=== PATIENT | female | born 2005 ===

== ENCOUNTER 2024-06-17 03:01 | Outpatient (CLI) | payer MEDICAID, SELFPAY ==
--- NOTE | 2024-06-17 07:15 | DI.US_ITS ---
Exam(s) US PELVIS TRANSVAGINAL EXAM: US PELVIS TRANSVAGINAL CLINICAL HISTORY: heavy periods, pelvic pain,r10.2,n92.0. TECHNIQUE: Transabdominal and transvaginal pelvic ultrasound was performed using standard protocol. COMPARISON: No exams were available for comparison FINDINGS: UTERUS: Position: Anteverted. Size: 8.7 long by 4.2 AP by 5.6 transverse cm Endometrium: 1.6 cm. This is at the upper limits of normal. Myometrium: Unremarkable. Cervix: There is a nabothian cysts present. OVARIES: Right: 3.6 x 2.4 x 2.9 cm Cyst or mass: No suspicious cystic or solid masses. Left: 3.7 x 1.9 x 2.7 cm Cyst or mass: No suspicious cystic or solid masses. There is a 2 cm hemorrhagic cyst seen on the lef t ovary. There are several smaller peripherally located cysts on the left ovary. They are less than 5 mm in size. DOPPLER: Color: Symmetric and uniform flow to both ovaries. CUL-DE-SAC: Free fluid: There is a small amount of fluid seen adjacent to the right ovary which is likely physiol ogic. Other: None. IMPRESSION: 1. Normal-appearing uterus with endometrial stripe within normal limits. 2. 2 cm left ovarian hemorrhagic cyst. 3. Small peripherally located cysts seen in the left ovary. In the appropriate clinical setting, PCO S may be considered. DATA REPOSITORY:
== END 2024-06-17 03:21 ==
LOC: DI 03:01
PROVIDERS: Visit Provider Nurse Practitioner Women's Health
DX: R10.2 Pelvic and perineal pain (principal); N92.0 Excessive and frequent menstruation with regular cycle
CPT/HCPCS: 76830; 76856

== ENCOUNTER 2024-09-23 00:43 | Outpatient (CLI) | payer MEDICAID, SELFPAY ==
--- NOTE | 2024-09-23 06:15 | DI.US_ITS ---
Exam(s) US PELVIS TRANSVAGINAL EXAM: US PELVIS TRANSVAGINAL CLINICAL HISTORY: f/u 6.5 R ovarian cyst,n83.209 TECHNIQUE: Transabdominal and transvaginal imaging was performed using standard protocol. COMPARISON: US US PELVIS TRANSVAGINAL from 06/17/2024 FINDINGS: UTERUS: Anteverted. 9.0 x 3.3 by 6.4 cm. Endometrium: Thickened endometrium with ovoid fluid collection which may represent a station all sac. It has a somewhat collapsed appearance. There is a questionable pole without cardiac activit y and a question of a yolk sac which also does not appear normal. Myometrium: Unremarkable. Cervix: Unremarkable nabothian cyst. OVARIES: Right: Cyst or mass: None. Left: Cyst or mass: None. DOPPLER: Color: Symmetric and uniform flow to both ovaries. No hyperemia. CUL-DE-SAC: Free fluid: Small to moderate amount of fluid in the cul-de-sac. IMPRESSION: 1. Thickening of the endometrial stripe the gestational sac. There is apparent gestational sac with questionable pole and yolk sac. No cardiac activity. The findings are consistent with a nonvi able gestation versus retained products of conception. 2. Unremarkable bilateral ovaries. Findings discussed with Heidi Montenegro NP DATA REPOSITORY:
== END 2024-09-23 01:03 ==
PROVIDERS: Visit Provider Nurse Practitioner Women's Health
DX: N83.201 Unspecified ovarian cyst, right side (principal); Z97.5 Presence of (intrauterine) contraceptive device
CPT/HCPCS: 76830; 76856

== ENCOUNTER 2024-09-23 10:22 | Outpatient (CLI) | payer MEDICAID, SELFPAY ==
[2024-09-23 10:33] LABS: HCG Quant, Pregnancy 2 mIU/mL (1-3)
== END 2024-09-23 10:23 | disposition home or self-care (01) ==
LOC: LBO 10:22
PROVIDERS: Visit Provider Nurse Practitioner Women's Health
DX: Z32.01 Encounter for pregnancy test, result positive (principal)
CPT/HCPCS: 36415; 84702

== ENCOUNTER 2024-09-23 12:41 | Day surgery (SDC) | payer MEDICAID, SELFPAY ==
[2024-09-23] VITALS (19 sets, daily range): BP systolic 101–128; BP diastolic 57–85; PULSE 49–85; RESP 9–20; TEMP 36.3–36.8; O2SAT 98–100; BMI 23.1
[2024-09-23 13:45] LABS: HCT 42.1 % (36.0-46.0); HGB 14.2 g/dL (11.2-15.7); MCH 30.7 pg (27.0-33.0); MCHC 33.7 % (32.0-36.0); MCV 91 fL (80-95); MPV 9.6 fL (8.0-11.0); Platelet Count 272 10^3/uL (130-400); RBC 4.63 10^6/uL (3.93-5.22); RDW 12.3 % (11.7-14.6); RDW-SD 40.6 fL; WBC 7.59 10^3/uL (4.4-10.8)
[2024-09-23] MEDS: Lactated Ringers 1,000 ML 150 ML IV (13:51)
[2024-09-23] MEDS: Doxycycline Hyclate 100 MG CAP 200 MG PO (13:51)
--- NOTE | 2024-09-23 13:57 | ANES.PREOP_ITS ---
General Info Date of Service Date Performed: 09/23/24 Height: 5 ft 3.75 in Weight: 60.6 kg Body Mass Index (BMI): 23.1 Surgical Procedure: Operation Date: 09/23/24 13:55 Proposed Procedure Side Surgeon p Suction D&C Brittnee Hartmann, s Insertion of IUD- Mirena Brittnee Hartmann, Meds Allergies and Home Medications Allergies Allergy/AdvReac Type Severity Reaction Status Date / Time No Known Allergies Allergy Verified 09/23/24 13:38 Home Medication ?Medication ?Instructions ?Recorded omeprazole 20 mg capsule,delayed 20 mg PO DAILY 09/23/24 release Current Visit Medications: Current Medications Generic Name Dose Route Start Last Admin Trade Name Freq PRN Reason Stop Dose Admin Citric Acid/Sodium Citrate 20 ml 09/23/24 06:00 Sodium Citrate 30 Ml Cup PO 09/23/24 23:59 PREOP JOYA Doxycycline Hyclate 200 mg 09/23/24 13:00 09/23/24 13:51 Doxycycline Hyclate 100 Mg Cap PO 09/23/24 23:59 200 mg PREOP JOYA Administration Ringer's Solution 1,000 mls @ 150 mls/hr 09/23/24 06:00 09/23/24 13:51 IV 09/23/24 23:59 150 mls/hr INFUSION JOYA Administration IV Miscellaneous Supplies 1 each 09/23/24 06:00 Iv Access IV 09/23/24 23:59 DIRECTED JOYA Sodium Chloride 0 ml 09/23/24 06:00 Normal Saline Flush 10 Ml Syr IV 09/23/24 23:59 PRN PRN Sodium Chloride 0 ml 09/23/24 06:00 Normal Saline 10 Ml Vial IJ 09/23/24 23:59 DIRECTED PRN Sterile Water 0 ml 09/23/24 06:00 Water,Injection,Sterile 10 Ml Vial IJ 09/23/24 23:59 DIRECTED PRN PFSH Active Problems Active Problems: Problem Status Onset Code Menorrhagia with regular cycle Acute N92.0 Dysmenorrhea Acute N94.6 Medical History Medical History (Updated 09/23/24 @ 13:39 by Leslie Roland) Hx of ovarian cyst Suicide attempt Inflammatory bowel syndrome Depression with anxiety Eating disorder Surgical History Surgical History (Updated 09/23/24 @ 13:39 by Leslie Roland) Hx of wisdom tooth extraction Tobacco Smoking/Tobacco Use Status: Former Tobacco Use Alcohol Alcohol Intake: current Alcohol intake frequency: other Substance Use Substance use: Occasionally Substance use type: marijuana Details: alcohol: t-14, marijuana: not currrently Prental History History 2 1 Para Hx # Term Pregnancies Multiple births Hx # Pregnancies Ectopic pregnancies AB induced Hx Number of Living Children AB spontaneous Vital Signs and Lab Results Vital Signs Most Recent Vital Signs in EMR: Most Recent Vital Signs Temp Pulse Resp BP Pulse Ox 36.7 C 79 18 120/85 100 09/23/24 13:41 09/23/24 13:41 09/23/24 13:41 09/23/24 13:41 09/23/24 13:41 Lab Results 09/23/24 13:33 Blood Type / Crossmatch: 2 Antibody Screen Pending 09/23/24 Complete Blood Count: 2 White Blood Count 7.59 10^3/uL (4.4-10.8) 09/23/24 13:33 Red Blood Count 4.63 10^6/uL (3.93-5.22) 09/23/24 13:33 Hemoglobin 14.2 g/dL (11.2-15.7) 09/23/24 13:33 Hematocrit 42.1 % (36.0-46.0) 09/23/24 13:33 Platelet Count 272 10^3/uL (130-400) 09/23/24 13:33 Complete Metabolic Panel: 2 No Data to Display Liver Function Panel: 2 No Data to Display Coagulation Panel: 2 No Data to Display Cardiac Panel: 2 No Data to Display Arterial Blood Gas: 2 No Data to Display Venous Blood Gas: 2 No Data to Display Pancreas Panel: 2 No Data to Display Thyroid Panel: 2 No Data to Display Infectious Disease: 2 No Data to Display Blood Cultures: 2 No Data to Display Toxicology Panel: 2 No Data to Display Panel: 2 Beta HCG, Quantitative 2 mIU/mL (1-3) 09/23/24 10:05 Anesthesia Assessment and Plan Anesthesia History Personal History: No History of Anesthesia Complications Family History: No Family History of Anesthesia Complications Exercise Tolerance Exercise Tolerance: Metabolic Equivalents>4 Cardiac & Pulmonary Exam Cardiac Exam: Normal S1/S2 Heart Sounds Pulmonary Exam: Clear Bilateral Breath Sounds Implantable Cardiac Device Does patient have a Pacemaker or an ICD?: No Airway Exam Known Difficult Airway: No Mallampati Class: 3 Mouth Opening: Normal (> 3cm) Thyromental Distance: Greater than 3 cm Neck Range of Motion: Full ROM Neck Circumference: Normal Teeth Condition: Normal Dentition ASA Classification ASA Score: ASA 2 Emergency Case?: No NPO Status NPO Status: NPO Clears >2 hours, Solids >8 hours Status Status: Negative HCG Anesthesia Plan Resuscitation Status: Full Code Anesthesia Technique: General Anesthesia Airway Planned: Natural Airway Monitors Used: Standard Monitors Preoperative Comments:: 19 yo female for D/C. In June received medication induced at~ 7wks. With a recent OB appointment was found to still have retained products. Sig PMHx: GERD (omeprazole), depression/anxiety. former smoker, occ cannabis/EtOH.
[2024-09-23] MEDS: Sodium Citrate 30 ML CUP 20 ML PO (13:58)
--- NOTE | 2024-09-23 15:09 | OPPNE_ITS ---
Date of service: 09/23/24 Time of Service: 15:09 Procedure Note Procedure: Suction dilation and curettage with placement of Mirena Intrauterine Device Surgeon/Proceduralist/Physician: Brittnee Hartmann Procedure Diagnosis: Incomplete miscarriage Procedure Indications: 19-year-old -0-2-0 presents for scheduled suction dilation curettage with placement of Mirena IUD. She was seen in the office for follow-up on adnexal cyst, and, while the cyst was noted to have resolved, she was noted to incidentally have an irregular appearing gestational sac. Patient reported a first day last menstrual period of somewhere between August 21 and with subsequent heavy bleeding on the days of September 16 and September 17. She was also noted to be bleeding in the office today. She does not desire , and had anticipated getting an IUD today. Given the concerning findings and her desire for an IUD, we discussed options and ultimately she was consented for the above procedure. Procedure Description: Patient was taken to the OR with IV fluids running. 200 mg of doxycycline had been administered orally approximately an hour before the procedure for surgical prophylaxis. General anesthesia was established and found to be adequate. The patient was positioned into the dorsolithotomy position using yellowfin stirrups. The vagina was prepped, and a straight cath was used to empty the bladder. A timeout was performed. A side loading Graves speculum was placed inside the vagina and the cervix was easily visualized. The anterior lip of the cervix was grasped with a single-tooth tenaculum, and the cervix was progressively dilated up to a 16 Arabic Elmer dilator. The uterus was sounded to approximately 8.5 cm. A curved 7 mm suction curette was placed with careful attention to avoid perforation. The suction tubing was then connected, and the curette was rotated carefully in a clockwise direction. A notable amount of product was removed from the uterus. The same procedure was performed until no more material was appreciated and ultrasound performed by a fellow physician appreciated a smooth endometrium (a total of 4 passes). The uterus was sounded once more to confirm an 8.5 cm depth. A Mirena IUD was removed from its packaging, and the cuff was arranged at 8 cm. The Mirena IUD was then retracted into its delivering device, the device was introduced into the uterine cavity, and the IUD was deployed using industrial standards. Again, ultrasound appreciated appropriate placement of the IUD. The strings were cut to 3 cm beyond the cervical os. The single-tooth tenaculum was removed, and good hemostasis was appreciated. All instruments were removed and the patient was noted to tolerate the procedure well. She was taken to PACU in good condition.
--- NOTE | 2024-09-23 15:27 | W.ANESPOSTOP ---
Postoperative Evaluation Date, Time and Location Date Performed: 09/23/24 Time Performed: 15:28 Patient Location: PACU Vital Signs Most Recent Imported Vital Signs: Most Recent Vital Signs Temp Pulse Resp BP Pulse Ox 36.8 C 79 18 120/85 100 09/23/24 15:12 09/23/24 13:41 09/23/24 13:41 09/23/24 13:41 09/23/24 13:41 Pain Score Most Recent Pain Score: Most Recent Pain Score Pain Level 1 09/23/24 13:41 Assessment Mental Status: Awake (Alert & Oriented to Patient Baseline) Airway and Respiratory Function: Patent airway with normal (patient baseline) respiratory exam Cardiovascular Function: Hemodynamically Stable Hydration Status: Adequately Hydrated Nausea & Vomiting: No Nausea or Vomiting Pain: Pain is tolerable per patient Peripheral Nerve Block: Patient did not receive a nerve block Postoperative Comments:: Discussed that we went to a breathing tube due to her stating that she had bubbling and was nauseated. Discussed that her throat will be sore due to suctioning at the end of the case due to her vomiting.
== END 2024-09-23 16:55 | disposition home or self-care (01) ==
PROVIDERS: Visit Provider Obstetrics & Gynecology
PROC: 0U2DXHZ Change Contraceptive Device in Uterus and Cervix, External Approach (ICD-10-PCS; CPT 59841; principal; 2024-09-23 13:45)
PROC: 0U2DXHZ Change Contraceptive Device in Uterus and Cervix, External Approach (ICD-10-PCS; CPT 59812; 2024-09-23 13:45)
DX: O03.4 Incomplete spontaneous abortion without complication (principal)
CPT/HCPCS: 59812; 58300; 85027; 86850; 86900; 86901; 88305; J0131; J1100; J1805; J1885; J2003; J2405; J2704

== ENCOUNTER 2024-09-23 19:33 | Inpatient (IN) | payer MEDICAID, SELFPAY ==
[2024-09-23 19:39] VITALS: BP 140/79; PULSE 76; RESP 20; TEMP 36.9; O2SAT 100
--- NOTE | 2024-09-23 19:45 | DI.CT_ITS ---
Exam(s) CT ABDOMEN PELVIS W EXAM: CT ABDOMEN PELVIS W CLINICAL HISTORY: D C today, abdominal pain. TECHNIQUE: Imaging Protocol: Axial computed tomography images with coronal and sagittal reformatted images were created and reviewed CONTRAST MATERIAL: Intravenous: Omnipaque-350 75cc Oral: None COMPARISON: No exams were available for comparison FINDINGS: VISUALIZED LUNG BASES: No nodules nor pleural effusions evident. ABDOMEN: There is some are mild free fluid in the pelvis as well as in the right paracolic gutter subjacent to the right hepatic lobe. LIVER: There are no focal hepatic lesions evident. No dilated intrahepatic ducts. GALLBLADDER/BILIARY: No obvious gallbladder pathology. CBD is not dilated. PANCREAS: No evidence of pancreatic mass nor dilatation of the pancreatic duct. SPLEEN: Spleen is not enlarged. No obvious intrasplenic lesions. Splenic and portal veins are paten t. ADRENALS: There are no significant adrenal masses. KIDNEYS:Bilateral extrarenal pelves. No true hydronephrosis nor hydroureter. No cysts nor solid marisel al masses. No calculi. No hydronephrosis.. ABDOMINAL AORTA: Abdominal aorta is not enlarged. LYMPH NODES:There is no retroperitoneal nor paraaortic adenopathy. ABDOMINAL WALL: No evidence of significant anterior abdominal wall nor inguinal hernia. GI: There is no evidence of bowel obstruction, free air, nor abscess. PELVIS: GI: Retrocecal appendix with no evidence of acute appendicitis..No evidence of sigmoid diverticulitis . LYMPH NODES: There is no intrapelvic nor inguinal adenopathy. REPRODUCTIVE: There is an IUD in the endometrial canal. The endometrium is significantly thickened t o almost 3 cm. There are no uterine fibroids. There are cysts in both ovaries. There is a 1.8 x 2. 0 cm cyst in the right ovary which is probably follicular. Left ovary measures 4 x 2.5 cm and contai ns a peripherally enhancing corpus luteal cyst measuring 2.1 x 1.2 cm. There are no obvious extra ov jcarlos adnexal masses. Small amount of fluid is noted in the adnexal regions and pelvis. URINARY BLADDER: No calculi nor obvious masses evident OSSEOUS: No fractures and no significant osseous lesions. No fractures. Sacroiliac joints appear unremarkable. IMPRESSION: 1. No evidence of acute appendicitis. 2. There is an IUD in the endometrial canal. The endometrium is significantly thickened, measuring 3 cm thickness. It appears to contain a homogeneous material, probably blood. There does not appear to be an obvious discontinuity of the wall of the uterus. 3. There are cysts in both ovaries as described above. There is also peripherally enhancing corpus luteal cyst in left ovary measuring 2.1 x 1.2 cm. There is small amount of fluid in the adnexal sherlyn ons and cul-de-sac and subjacent to the right hepatic lobe. Small follicular cysts noted in the righ t ovary. 4. No evidence of bowel obstruction, free air, nor formed abscess. Report discussed by myself with ER provider 09/23/2024 at 9: 10 p.m. RADIATION DOSE DELIVERED: 340.89mGy.cm Total DLP DATA REPOSITORY: All CT scans at this facility are submitted to the National Radiology Data Registry (NRDR) Dose Index Registry (DIR) with the [employer] (A[employer]). RADIATION OPTIMIZATION: All CT scans at this facility use at least one of these dose optimization te chniques: automated exposure control; mA and/or kV adjustment per patient size (includes targeted exa ms where dose is matched to clinical indication); or iterative reconstruction.
--- NOTE | 2024-09-23 19:58 | W.ED.GENAD ---
Discharge Plan Disposition Patient Disposition: Admit to [facility] Condition: Stable Discharge Details Clinical Impression: Postoperative abdominal pain Primary Care Provider: Brittnee Elder ED Provider: Bianca Billy Home Meds and New Rx's Prescriptions: No Action omeprazole 20 mg capsule,delayed release(DR/EC) 20 mg PO DAILY ondansetron HCl 4 mg tablet 4 mg PO Q8H Patient Comments: TAKE 1 TABLET BY MOUTH EVERY 8 HOURS NEEDED FOR NAUSEA HPI General Mode of arrival: ambulatory. Date/Time Provider Initiated Documentation: 09/23/24 19:33. Limitations to Documentation: no limitations. Information obtained by: patient, RN notes reviewed and old records reviewed. HPI Narrative: 19-year-old female presents to the ER with a chief complaint of abdominal cramping and vaginal bleeding after having a D&C procedure today and Mirena placement. Patient was found to have retained products of conception from a elective on August 28. D&C was done and Mirena was placed. Patient reports that she went home and cramping has increased and intensified along with continued vaginal bleeding. She also endorses some nausea which is somewhat decreased since arrival. Denies any fever chills or any other associated symptoms. Last took Tylenol and ibuprofen around 3 PM. Related Data Home Medications ?Medication ?Instructions ?Recorded ?Confirmed omeprazole 20 mg capsule,delayed 20 mg PO DAILY 09/23/24 09/23/24 release ondansetron HCl 4 mg tablet 4 mg PO Q8H 09/23/24 09/23/24 Allergies Allergy/AdvReac Type Severity Reaction Status Date / Time No Known Allergies Allergy Verified 09/23/24 19:42 General Stated Complaint: J2EE JAVA DEVELOPER HUMERA: 3 Review of Systems All systems reviewed & are unremarkable except as noted in HPI and below Gastrointestinal Gastrointestinal: Reports abdominal pain, Reports cramping and Reports nausea Genitourinary Genitourinary: Reports abnormal vaginal bleeding Exam Narrative Exam Narrative: Constitutional: Alert and oriented x3. Appears stated age. Normal body habitus. Head: Normocephalic, no trauma. Eyes: Pupils PERRL, Red reflex noted, EOM's intact. Eyelids symmetrical without lesions, discharge, or swelling. ENT: Bilateral TM's WNL, External ear normal to inspection, no mastoid TTP, swelling, or erythema, Nasal turbinates WNL, no nasal discharge. Normal dentition, Posterior pharynx WNL, no exudate. Chest: RRR, Normal S1, S2, distal pulses intact. Resp: Lungs clear to auscultation bilaterally, no wheezes, rales, or rhonchi. Abdomen: Soft, non-distended, Normoactive bowel sounds all 4 quads. Right lower quadrant tenderness with palpation. No bloating no masses. No distention. Musculoskeletal: Normal gait, Moves all 4 extremities without difficulty. Skin: No suspicious rashes or lesions. Capillary refill less than 2 sec. Neurologic: Cranial nerves II-XII intact. Alert and oriented x 3. Motor: No deficits noted. Sensory: Intact bilaterally all 4 extremities. Hematologic/Lymphatic: No ecchymosis, no lymphadenopathy. Course Vital Signs Vital signs: Vital Signs Temperature 36.9 C 09/23/24 19:39 Pulse 76 09/23/24 19:39 Respiratory Rate 20 09/23/24 19:39 Blood Pressure 140/79 09/23/24 19:39 Pulse Oximetry 100 09/23/24 19:39 Temperature 36.9 C 09/23/24 19:39 Pulse 76 09/23/24 19:39 Respiratory Rate 20 09/23/24 19:39 Blood Pressure 140/79 09/23/24 19:39 Pulse Oximetry 100 09/23/24 19:39 Pain Level 8 09/23/24 19:54 Medical Decision Making 19-year-old female presents to the ER with a chief complaint of abdominal cramping and vaginal bleeding after having a D&C procedure today and Mirena placement. Patient was found to have retained products of conception from a elective on August 28. D&C was done and Mirena was placed. Patient reports that she went home and cramping has increased and intensified along with continued vaginal bleeding. She also endorses some nausea which is somewhat decreased since arrival. Denies any fever chills or any other associated symptoms. Last took Tylenol and ibuprofen around 3 PM. CBC CMP IV normal saline 500 cc 15 mg of Toradol Zofran given. Will do CT abdomen pelvis. principal programmer Brittnee Forte, here at for patient evaluation, she suspects possible expelling of IUD. J2EE JAVA DEVELOPER was able to do bimanual exam was able to feel the strings and reports that the bleeding that patient currently has is appropriate. She agrees with the labs and CT imaging. 2117: J2EE JAVA DEVELOPER paged, call received from [facility] regarding CT result, there is a punctate hyperdense focus in the right superior aspect of the endometrium differential considerations include extravasation. Thickened endometrium, ovarian cysts, some free fluid by the right hepatic lobe. Spoke again with J2EE JAVA DEVELOPER she will admit her overnight for observation, discussed the CT results. Patient has remained hemodynamically stable throughout the remainder of her stay here. This text was generated using [employer]ubank[employer] system, please disregard any oddities of phrase or misspellings. Medical Records Medical records reviewed: Yes I reviewed the patient's medical records. Imaging Data Radiologic Study: Imaging: CT Scan Radiologist's impression: gs: Lung bases are clear. Liver: The liver has a normal appearance. Gallbladder and biliary ducts: The gallbladder is unremarkable. No biliary ductal dilatation. Pancreas: The pancreas demonstrates normal size. No pancreatic ductal dilatation. Spleen: The spleen demonstrates normal size. Adrenal glands: The adrenal glands have a normal appearance. Kidneys and ureters: The kidneys are normal in size. There are prominent bilateral extrarenal pelves noted. No nephrolithiasis or hydronephrosis. No hydroureter or ureterolithiasis. Stomach and bowel: The bowel demonstrates overall normal caliber and wall thickness. Appendix: The appendix is thin walled and gas filled. Intraperitoneal space: Unremarkable. No free air. No significant fluid collection. Vasculature: Unremarkable. No abdominal aortic aneurysm. Lymph nodes: Unremarkable. No enlarged lymph nodes. Urinary bladder: The bladder is thin walled and fluid filled. Reproductive: An IUD is present within the uterine fundus where expected. The endometrium is thickened measuring up to 2.8 cm in diameter. A hyperdense focus is present within the superior right aspect of the endometrium which appears isodense to the adjacent external iliac artery. Differential considerations include active extravasation. A crenulated appearing follicular cyst is present within the left ovary. A 1.6 cm hypodense cyst is present within the right ovary. Bones/joints: Unremarkable. No acute fracture. Soft tissues: Unremarkable. IMPRESSION: 1. Markedly thickened endometrium with punctate hyperdense focus as described above. This finding may be associated with a small nidus of active extravasation given the history of recent D&C. 2. No other acute intra-abdominal findings. Normal appendix. 3. Crenulated appearing left ovarian cyst suggesting Lab Data Lab results reviewed: Yes I reviewed the patient's lab results. Labs: Laboratory Tests Range/Units 09/23/24 20:09 WBC (4.4-10.8) 10^3/uL 8.27 RBC (3.93-5.22) 10^6/uL 4.48 Hgb (11.2-15.7) g/dL 13.7 Hct (36.0-46.0) % 40.2 MCV (80-95) fL 90 MCH (27.0-33.0) pg 30.6 MCHC (32.0-36.0) % 34.1 RDW (11.7-14.6) % 12.3 Plt Count (130-400) 10^3/uL 281 MPV (8.0-11.0) fL 9.7 Immature Gran % % 0.2 Neutrophils % % 87.9 Lymphocytes % % 10.5 Monocytes % % 1.1 Eosinophils % % 0.2 Basophils % % 0.1 Nucleated RBC % (0.0-0.3) % 0.0 Absolute Neutrophils (1.2-6.7) 10^3/uL 7.26 H Absolute Lymphocytes (1.2-3.4) 10^3/uL 0.87 L Absolute Monocytes (0.1-0.8) 10^3/uL 0.09 L Absolute Eosinophils (0.0-0.7) 10^3/uL 0.02 Absolute Basophils (0.0-0.2) 10^3/uL 0.01 Sodium (136-145) mmol/L 138 Potassium (3.5-5.1) mmol/L 3.9 Chloride (98-107) mmol/L 105 Carbon Dioxide (21.0-32.0) mmol/L 24.0 Anion Gap (3-11) mmol/L 9.0 BUN (7-18) mg/dL 13 Creatinine (0.55-1.02) mg/dL 0.7 Est GFR (CKD-EPI 2020) (mL/min/1.73m2) 126.90 Glucose (74-106) mg/dL 169 H Calcium (8.5-10.1) mg/dL 9.5 Total Bilirubin (0.2-1.0) mg/dL 0.6 AST (15-37) U/L 19 ALT (14-59) U/L 16 Alkaline Phosphatase (46-116) U/L 62 Total Protein (6.4-8.2) g/dL 8.0 Albumin (3.4-5.0) g/dL 4.4 Quality:SDOH Health Related Social Needs: No Data to Display PFSH All Active Problems (Updated 09/23/24 @ 21:37 by Bianca Billy NP) Postoperative abdominal pain (Acute) Abdominal pain (Acute) Menorrhagia with regular cycle (Acute) Dysmenorrhea (Acute) Medical History (Updated 09/23/24 @ 21:37 by Bianca Billy NP) Hx of ovarian cyst Suicide attempt Inflammatory bowel syndrome Depression with anxiety Eating disorder Surgical History (Updated 09/23/24 @ 13:39 by Leslie Roland) Hx of wisdom tooth extraction Family History (Updated 06/03/24 @ 11:01 by Lidia Jones) Other Hypertension Stroke Social History (Updated 06/03/24 @ 10:59 by Lidia Jones) Smoking/Tobacco Use Status: Former Tobacco Use Tobacco: How many years used: 1 Quit status: has quit before Smoking risk assessment performed?: Yes Alcohol Intake: current Alcohol Intake frequency: other Drug use: Occasionally Substance use type: marijuana Details: alcohol: t-14, marijuana: not currrently Household members: significant other Housing: house 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 Sexually active: Yes Do you think of yourself as: straight/heterosexual Current gender identity: female What is your relationship status?: living with partner Panel score (0-1 are the most socially isolated patients): 1 What type of physical activity do you participate in: regular exercise Duration: 45-60 minutes/day Frequency: 5-6 times per week Seatbelt use: always Helmet use: Yes Do you feel safe at home: Yes Do you feel safe in your relationship?: Yes Additional Social history: UT[employer] Female Reproductive History Menstrual Duration of menses: 6-7 days control method: none History History 1 Para Hx # Term Pregnancies Multiple births Hx # Pregnancies Ectopic pregnancies AB induced Hx Number of Living Children AB spontaneous
[2024-09-23 20:13] LABS: Abs Immature Grans 0.02 10^3/uL (0.0-0.06); Absolute Basophil Count 0.01 10^3/uL (0.0-0.2); Absolute Eosinophil Count 0.02 10^3/uL (0.0-0.7); Absolute Lymphocyte Count 0.87 10^3/uL (1.2-3.4); Absolute Monocyte Count 0.09 10^3/uL (0.1-0.8); Absolute Neutrophil Count 7.26 10^3/uL (1.2-6.7); Basophils % 0.1 %; Eosinophils % 0.2 %; HCT 40.2 % (36.0-46.0); HGB 13.7 g/dL (11.2-15.7); Immature Grans % 0.2 %; Lymphocytes % 10.5 %; MCH 30.6 pg (27.0-33.0); MCHC 34.1 % (32.0-36.0); MCV 90 fL (80-95); MPV 9.7 fL (8.0-11.0); Monocytes % 1.1 %; Neutrophils % 87.9 %; Platelet Count 281 10^3/uL (130-400); RBC 4.48 10^6/uL (3.93-5.22); RDW 12.3 % (11.7-14.6); RDW-SD 40.3 fL; WBC 8.27 10^3/uL (4.4-10.8)
[2024-09-23] MEDS: Ketorolac 15 MG/ML VIAL IVP (20:17)
[2024-09-23] MEDS: Ondansetron 4 MG/2 ML VIAL IVP (20:17)
[2024-09-23] MEDS: Normal Saline 500 ML IV (20:18)
[2024-09-23 20:37] LABS: ALT 16 U/L (14-59); AST 19 U/L (15-37); Albumin 4.4 g/dL (3.4-5.0); Alkaline Phosphatase 62 U/L (46-116); BUN 13 mg/dL (7-18); Bilirubin, Total 0.6 mg/dL (0.2-1.0); CREATININE 0.7 mg/dL (0.55-1.02); Calcium 9.5 mg/dL (8.5-10.1); Chloride 105 mmol/L (98-107); Glucose 169 mg/dL (74-106); Potassium 3.9 mmol/L (3.5-5.1); Sodium 138 mmol/L (136-145)
[2024-09-23] MEDS: Omnipaque 350 MG/ML 100 ML BTL 75 ML IJ (20:37)
[2024-09-23] MEDS: Normal Saline - Diluent 50 ML VIAL IJ (20:38)
--- NOTE | 2024-09-23 20:55 | HPE_ITS ---
Date of service: 09/23/24 Time of Service: 20:00 Assessment and Plan Assessment and plan (1) Abdominal pain: Status: Acute Assessment and plan: The procedure performed was uncomplicated and the results were reassured with concomitant ultrasound imaging at the time of the procedure. The physical exam of the patient is consistent with the postoperative state. Patient endorses reduction of the pain with distraction of the emergency department. She denies nausea or any other associated symptoms. Her vitals are stable, her labs are stable, and her bleeding is appropriate. Strings are appreciated at the cervix, and I am unable to palpate the body of the IUD itself. I suspect her pain may be related to postoperative cramping, but, based on the patient's reported level of pain prior to presenting to the emergency department and the unilateral nature of the pain, I am in support of the decision to obtain a CT scan. History of Present Illness Narrative: I received a phone call from the patient this evening describing notable pain in the pelvis most prominently on the right side. Patient was instructed to proceed immediately to the emergency department. I assessed the patient at bedside. Review of Systems All systems reviewed & are unremarkable except as noted in HPI and below PFSH All Active Problems (Updated 09/23/24 @ 21:16 by Brittnee Hartmann DO) Abdominal pain (Acute) Menorrhagia with regular cycle (Acute) Dysmenorrhea (Acute) Medical History (Updated 09/23/24 @ 21:16 by Brittnee Hartmann DO) Hx of ovarian cyst Suicide attempt Inflammatory bowel syndrome Depression with anxiety Eating disorder Surgical History (Updated 09/23/24 @ 13:39 by Leslie Roland) Hx of wisdom tooth extraction Family History (Updated 06/03/24 @ 11:01 by Lidia Joens) Other Hypertension Stroke Social History (Updated 06/03/24 @ 10:59 by Lidia Jones) Smoking/Tobacco Use Status: Former Tobacco Use Tobacco: How many years used: 1 Quit status: has quit before Smoking risk assessment performed?: Yes Alcohol Intake: current Alcohol Intake frequency: other Drug use: Occasionally Substance use type: marijuana Details: alcohol: t-14, marijuana: not currrently Household members: significant other Housing: house 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 Sexually active: Yes Do you think of yourself as: straight/heterosexual Current gender identity: female What is your relationship status?: living with partner Panel score (0-1 are the most socially isolated patients): 1 What type of physical activity do you participate in: regular exercise Duration: 45-60 minutes/day Frequency: 5-6 times per week Seatbelt use: always Helmet use: Yes Do you feel safe at home: Yes Do you feel safe in your relationship?: Yes Additional Social history: UT[employer] Female Reproductive History Menstrual Duration of menses: 6-7 days control method: none History History 2 1 Para Hx # Term Pregnancies Multiple births Hx # Pregnancies Ectopic pregnancies AB induced Hx Number of Living Children AB spontaneous Meds Allergies and Home Medications Allergies Allergy/AdvReac Type Severity Reaction Status Date / Time No Known Allergies Allergy Verified 09/23/24 19:42 Home Medications ?Medication ?Instructions ?Recorded ?Confirmed ?Type omeprazole 20 mg capsule,delayed 20 mg PO DAILY 09/23/24 09/23/24 History release ondansetron HCl 4 mg tablet 4 mg PO Q8H 09/23/24 09/23/24 History Exam Narrative Exam Narrative: General: Well-nourished female; somewhat tearful but pleasant. Skin tone consistent with prior appearance. And HEENT: Normocephalic Pulm: Nonlabored breathing Abdomen: Soft, nondistended, nontender. Patient tolerates deep palpation of the lower abdomen well. Psych: Appropriate and responsive : Scant blood on pad appropriate for postop. Bimanual exam appreciates a closed cervix with strings protruding; some guarding with touching the cervix noted. Scant blood on glove. Results Labs 09/23/24 20:09 09/23/24 20:09 Labs: Laboratory Results - last 24 hr 09/23/24 20:09 WBC 8.27 RBC 4.48 Hgb 13.7 Hct 40.2 MCV 90 MCH 30.6 MCHC 34.1 RDW 12.3 Plt Count 281 MPV 9.7 Immature Gran % 0.2 Neutrophils % 87.9 Lymphocytes % 10.5 Monocytes % 1.1 Eosinophils % 0.2 Basophils % 0.1 Nucleated RBC % 0.0 Absolute Neutrophils 7.26 H Absolute Lymphocytes 0.87 L Absolute Monocytes 0.09 L Absolute Eosinophils 0.02 Absolute Basophils 0.01 Sodium 138 Potassium 3.9 Chloride 105 Carbon Dioxide 24.0 Anion Gap 9.0 BUN 13 Creatinine 0.7 Est GFR (CKD-EPI 2020) 126.90 Glucose 169 H Calcium 9.5 Total Bilirubin 0.6 AST 19 ALT 16 Alkaline Phosphatase 62 Total Protein 8.0 Albumin 4.4 Last Vital Signs Temp 98.4 F 09/23/24 19:39 Pulse 76 09/23/24 19:39 Resp 20 09/23/24 19:39 BP 140/79 09/23/24 19:39 Pulse Ox 100 09/23/24 19:39 Time Spent Time spent with Patient: 40-54 minutes Time was spent: preparing to see the patient(eg.review tests), obtaining and/or reviewing separately otained hiistory, referring, communicating with other health animal care giver, indepentently interpreting results and counseling the patient
--- NOTE | 2024-09-23 21:11 | DI.VRAD_ITS ---
PROCEDURE INFORMATION: Exam: CT Abdomen And Pelvis With Contrast Exam date and time: 09/23/2024 8:32 PM Age: 19 years old Clinical indication: Abdominal pain; Generalized; Prior surgery; Surgery date: Post-operative (0-2 days); Surgery type: D\T\c today - bleeding and pain TECHNIQUE: Imaging protocol: Computed tomography of the abdomen and pelvis with contrast. Contrast material: OMNIPAQUE 350; Contrast volume: 75 ml; Contrast route: INTRAVENOUS (IV); COMPARISON: US PELVIS TRANSVAGINAL 09/23/2024 8:19 AM FINDINGS: Lungs: Lung bases are clear. Liver: The liver has a normal appearance. Gallbladder and biliary ducts: The gallbladder is unremarkable. No biliary ductal dilatation. Pancreas: The pancreas demonstrates normal size. No pancreatic ductal dilatation. Spleen: The spleen demonstrates normal size. Adrenal glands: The adrenal glands have a normal appearance. Kidneys and ureters: The kidneys are normal in size. There are prominent bilateral extrarenal pelves noted. No nephrolithiasis or hydronephrosis. No hydroureter or ureterolithiasis. Stomach and bowel: The bowel demonstrates overall normal caliber and wall thickness. Appendix: The appendix is thin walled and gas filled. Intraperitoneal space: Unremarkable. No free air. No significant fluid collection. Vasculature: Unremarkable. No abdominal aortic aneurysm. Lymph nodes: Unremarkable. No enlarged lymph nodes. Urinary bladder: The bladder is thin walled and fluid filled. Reproductive: An IUD is present within the uterine fundus where expected. The endometrium is thickened measuring up to 2.8 cm in diameter. A hyperdense focus is present within the superior right aspect of the endometrium which appears isodense to the adjacent external iliac artery. Differential considerations include active extravasation. A crenulated appearing follicular cyst is present within the left ovary. A 1.6 cm hypodense cyst is present within the right ovary. Bones/joints: Unremarkable. No acute fracture. Soft tissues: Unremarkable. IMPRESSION: 1. Markedly thickened endometrium with punctate hyperdense focus as described above. This finding may be associated with a small nidus of active extravasation given the history of recent D\T\C. 2. No other acute intra-abdominal findings. Normal appendix. 3. Crenulated appearing left ovarian cyst suggesting recent follicular cyst rupture. Probable right corpus luteal cyst incompletely characterized by CT. THIS REPORT CONTAINS FINDINGS THAT MAY BE CRITICAL TO PATIENT CARE. The findings were verbally communicated via telephone conference with HELEN GONZALEZ at 9:11 PM EST on 09/23/2024. The findings were acknowledged and understood. Dictated and Authenticated by: Pooja Jane MD. Orderin Mariajose Valenzuela MD
[2024-09-23 21:16] VITALS: BP 129/87; PULSE 66; RESP 20; O2SAT 99
[2024-09-24] MEDS: Acetaminophen 500 MG TAB PO (00:28)
[2024-09-24 00:39] VITALS: BP 120/79; PULSE 72; RESP 16; TEMP 37.1
[2024-09-24 08:32] VITALS: BP 110/64; PULSE 54; RESP 16; TEMP 37.3; O2SAT 99
--- NOTE | 2024-09-24 23:58 | DSE_ITS ---
Date of service: 09/24/24 Time of Service: 09:00 DS: Diagnosis Discharge Diagnosis (1) Abdominal pain: Status: Acute Discharge Plan Disposition Patient Disposition: Home Condition: Stable Condition: Stable Discharge Details Reason For Visit: Post-operative pain Admit Date/Time: 09/23/24 22:32 Admit Provider: Brittnee Hartmann Attending Provider: Brittnee Hartmann Primary Care Provider: Brittnee Elder Hospital Course Hospital Course: 19-year-old -0-2-0 presented to the clinic on 09/23/2024 for follow-up on previously known adnexal cyst and placement of IUD. Of note, patient had undergone pharmacological, elective termination of in June 2024, which was confirmed as resolved at a [facility] by ultrasound. Patient underwent a subsequent ultrasound patient underwent a subsequent ultrasound today, regarding a recent adnexal cyst, and was incidentally noted to have an irregularly appearing gestational sac with questionable pole without cardiac activity. Patient reported a first day last menstrual period of sometime between August 21 and August 28; she did not desire this if it was viable. She described a heavy episode of bleeding on September 16 as well as September 17, and reported bleeding throughout the last week including today. Based on the ultrasound findings and symptoms concerning for incomplete miscarriage, patient was counseled on options including but not limited to everything from expectant management to suction dilation and curettage with placement of a Mirena IUD to be performed same day. After extensive counseling and answering of patient's questions, patient ultimately verbalized strong desire for proceeding with suction dilation curettage with placement of Mirena intrauterine device on the same day. This procedure was performed under ultrasound guidance on September 23, 2024 without issue, and patient was discharged to home same day. She called later in the evening expressing concerns over extreme pelvic pain, most notably over the right side. She was instructed to proceed to the emergency department immediately for evaluation. Upon arrival to the emergency department, I personally evaluated the patient, and found her to be overall appropriate in appearance for post suction dilation curettage. Her bimanual exam found no evidence of IUD expulsion nor excessive bleeding. Lab work was reassuring for hemodynamic stability as were vital signs. CT imaging was largely reassuring as well and was consistent with reassuring IUD placement. However, reviewed by 1 radiologist suggested the possibility of bleeding from the right side of the endometrium. Patient was admitted overnight for observation and pain management; over the course of the evening, she was noted to sleep without issue and required no further pain medications. The following morning, the patient was evaluated at the bedside, and found to be doing very well. She reported notable improvement in her pain overnight. Her bleeding was scant, and she was tolerating a regular diet without issue. She was able to urinate and defecate without issue. She denied any notable concerns. She was discharged to home with instructions to take off of work for , Saturday, Saturday, and Saturday. She was advised to make an appointment with the clinic for early the following week, and she was further advised to have a low threshold for representing for emergent medical evaluation if any further concerns arise. Both her and her boyfriend were advised to avoid sexual intercourse for at least 2 weeks, and/or until medically cleared. Home Meds and New Rx's Prescriptions: No Action omeprazole 20 mg capsule,delayed release(DR/EC) 20 mg PO DAILY ondansetron HCl 4 mg tablet 4 mg PO Q8H Patient Comments: TAKE 1 TABLET BY MOUTH EVERY 8 HOURS NEEDED FOR NAUSEA Discharge Instructions Activity:: Pelvic rest Equipment/Supplies:: No Equipment Needed Diet:: Normal Diet Discharge Orders Discharge Orders: Discharge Order (Routine); Ordered 09/24/24 Ordered By: Brittnee Hartmann Discharge Data Discharge Date/Time-TO BE ENTERED AT DEPARTURE: 09/24/24 10:18 DS: Summary Time Spent with Patient providing and/or coordinating discharge services: Less than 30 minutes Status at Discharge Functional status at discharge: independent ambulation Overall status at discharge: patient is back to baseline Mental Status: mental status grossly normal Speech and Movement: speech and movement normal Mood: congruent mood Affect: normal affect Quality:SDOH Health Related Social Needs: No Data to Display Exam Psych Mental Status: mental status grossly normal Speech and Movement: speech and movement normal Mood: congruent mood Affect: normal affect DS: Data Vitals/I&O Vitals and I&O: Vital Signs Temperature 99.1 F 09/24/24 08:32 Temperature Source Tympanic 09/24/24 08:32 Pulse 54 L 09/24/24 08:32 Respiratory Rate 16 09/24/24 08:32 Blood Pressure 110/64 09/24/24 08:32 Blood Pressure Mean 79 05/08/25 08:32 Pulse Oximetry 99 09/24/24 08:32 Oxygen Delivery Method Room Air 09/24/24 08:32 Oxygen Flow Rate 0 09/24/24 08:32 Pain Level 3 09/24/24 08:32 Intake & Output 09/23/24 09/24/24 09/24/24 23:59 11:59 23:59 Weight 135 lb PFSH All Active Problems (Updated 09/25/24 @ 00:09 by Brittnee Hartmann DO) Postoperative abdominal pain (Acute) Abdominal pain (Acute) Menorrhagia with regular cycle (Acute) Dysmenorrhea (Acute) Medical History (Updated 09/25/24 @ 00:09 by Brittnee Hartmann DO) Hx of ovarian cyst Suicide attempt Inflammatory bowel syndrome Depression with anxiety Eating disorder Surgical History (Updated 09/23/24 @ 13:39 by Leslie Roland) Hx of wisdom tooth extraction Family History (Updated 06/03/24 @ 11:01 by Lidia Jones) Other Hypertension Stroke Social History (Updated 06/03/24 @ 10:59 by Lidia Jones) Smoking/Tobacco Use Status: Former Tobacco Use Tobacco: How many years used: 1 Quit status: has quit before Smoking risk assessment performed?: Yes Alcohol Intake: current Alcohol Intake frequency: other Drug use: Occasionally Substance use type: marijuana Details: alcohol: t-14, marijuana: not currrently Household members: significant other Housing: house 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 Sexually active: Yes Do you think of yourself as: straight/heterosexual Current gender identity: female What is your relationship status?: living with partner Panel score (0-1 are the most socially isolated patients): 1 What type of physical activity do you participate in: regular exercise Duration: 45-60 minutes/day Frequency: 5-6 times per week Seatbelt use: always Helmet use: Yes Do you feel safe at home: Yes Do you feel safe in your relationship?: Yes Additional Social history: UTAP Female Reproductive History Menstrual Duration of menses: 6-7 days control method: none History History 1 Para Hx # Term Pregnancies Multiple births Hx # Pregnancies Ectopic pregnancies AB induced Hx Number of Living Children AB spontaneous Time Spent with Patient Time Spent with Patient: <45 minutes Time was spent: preparing to see the patient(eg.review tests), obtaining and/or reviewing separately otained hiistory, ordering medications,tests, procedures, indepentently interpreting results, counseling the patient and care coordination
== END 2024-09-24 10:18 | disposition home or self-care (01) | DRG 948 ==
LOC: ER 21:37 → OBS 09-24 00:21
PROVIDERS: Admitting Provider Obstetrics & Gynecology; Emergency Provider Registered Nurse Emergency; Visit Provider Obstetrics & Gynecology
DX: G89.18 Other acute postprocedural pain (principal); R10.2 Pelvic and perineal pain; K52.9 Noninfective gastroenteritis and colitis, unspecified; F41.8 Other specified anxiety disorders; F50.9 Eating disorder, unspecified; Z68.23 Body mass index [BMI] 23.0-23.9, adult; Z91.51 Personal history of suicidal behavior
CPT/HCPCS: 80053; 96361; 96374; 96375; 99285; 74177; 85025; G0378; J1885; J2405; J3490

== ENCOUNTER 2025-01-09 00:29 | Emergency (ER) | payer MEDICAID, SELFPAY ==
[2025-01-09 00:32] VITALS: BP 130/89; PULSE 84; RESP 20; TEMP 36.3; O2SAT 100
--- NOTE | 2025-01-09 00:36 | W.ED.GENAD ---
Discharge Plan Disposition Patient Disposition: Home Condition: Good Discharge Details Clinical Impression: 1st degree sunburn Primary Care Provider: Brittnee Elder ED Provider: Shar Fregoso Meds and New Rx's Prescriptions: Continued omeprazole 20 mg capsule,delayed release(DR/EC) 20 mg PO DAILY ondansetron HCl 4 mg tablet 4 mg PO Q8H Patient Comments: TAKE 1 TABLET BY MOUTH EVERY 8 HOURS NEEDED FOR NAUSEA Discharge Instructions Instructions: Sunburn ED Additional Instructions: You were seen in the ED for sunburn after falling asleep in the sun. This would be considered first-degree burn and over the next 24-48 hours should improve in terms of discomfort. Alternate acetaminophen with ibuprofen every 4 hours as we discussed. Use aloe vera gel as needed for comfort. Follow-up with primary care as needed. Return to ED for any concerns. HPI General Mode of arrival: ambulatory. Date/Time Provider Initiated Documentation: 01/09/25 00:36. Limitations to Documentation: no limitations. Information obtained by: patient. HPI Narrative: Patient presents to ED with sunburn to the back of her legs and on her back. Patient fell asleep in the sun. Typically wears sunscreen but because she was sleeping sustained burn. Has used aloe but still has significant discomfort. Has not tried ibuprofen or acetaminophen. Related Data Home Medications ?Medication ?Instructions ?Recorded ?Confirmed omeprazole 20 mg capsule,delayed 20 mg PO DAILY 09/23/24 09/23/24 release ondansetron HCl 4 mg tablet 4 mg PO Q8H 09/23/24 09/23/24 Allergies Allergy/AdvReac Type Severity Reaction Status Date / Time No Known Allergies Allergy Verified 10/28/24 14:50 General Stated Complaint: Burn HUMERA: 4 Exam Narrative Exam Narrative: Const: WDWN femmale in NAD. VS per triage. HEENT: NC/AT. Normal facial exam. Neck: Supple. Trachea midline. Lungs: Normal respiratory effort. Neuro: A+O x 3. Normal speech, mentation, gait. Cranial nerves II - XII grossly intact. No gross motor or sensory deficit. Ext: No C/C/E. Skin: First-degree sunburn involving the back as well as the back of the legs especially in the popliteal fossa. There is no blistering of the skin. Course Vital Signs Vital signs: Vital Signs Temperature 97.4 F L 01/09/25 00:32 Pulse 84 01/09/25 00:32 Respiratory Rate 20 01/09/25 00:32 Blood Pressure 130/89 01/09/25 00:32 Pulse Oximetry 100 01/09/25 00:32 Temperature 97.4 F L 01/09/25 00:32 Pulse 84 01/09/25 00:32 Respiratory Rate 20 01/09/25 00:32 Blood Pressure 130/89 01/09/25 00:32 Blood Pressure Position Sitting 01/09/25 00:32 Pulse Oximetry 100 01/09/25 00:32 Oxygen Delivery Method Room Air 01/09/25 00:32 Oxygen Flow Rate 0 01/09/25 00:32 Medical Decision Making Patient is reassured. Recommend alternating acetaminophen with ibuprofen every 4 hours over the next day or 2 for comfort. Continue use of aloe vera gel for comfort. Follow-up with PCP next week as needed. Return to ED with any concerns. PFSH All Active Problems (Updated 01/09/25 @ 00:45 by Shar Fregoso MD) 1st degree sunburn (Acute) Postoperative abdominal pain (Acute) Menorrhagia with regular cycle (Acute) Dysmenorrhea (Acute) Medical History (Updated 01/09/25 @ 00:45 by Shar Fregoso MD) Hx of ovarian cyst Suicide attempt Inflammatory bowel syndrome Depression with anxiety Eating disorder Surgical History History of dilatation and curettage Hx of wisdom tooth extraction Family History Other Hypertension Stroke Social History Smoking/Tobacco Use Status: Former Tobacco Use Tobacco: How many years used: 1 Quit status: has quit before Smoking risk assessment performed?: Yes Alcohol Intake: current Alcohol Intake frequency: other Drug use: Occasionally Substance use type: does not use Details: alcohol: t-14, marijuana: not currrently Household members: significant other Housing: house 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 Sexually active: Yes Do you think of yourself as: straight/heterosexual Current gender identity: female What is your relationship status?: living with partner Panel score (0-1 are the most socially isolated patients): 1 What type of physical activity do you participate in: regular exercise Duration: 45-60 minutes/day Frequency: 5-6 times per week Seatbelt use: always Helmet use: Yes Do you feel safe at home: Yes Do you feel safe in your relationship?: Yes Additional Social history: UTAP Female Reproductive History Menstrual Duration of menses: 6-7 days control method: none History History 1 Para Hx # Term Pregnancies Multiple births Hx # Pregnancies Ectopic pregnancies AB induced Hx Number of Living Children AB spontaneous
[2025-01-09 00:56] VITALS: RESP 18
== END 2025-01-09 01:03 | disposition home or self-care (01) ==
PROVIDERS: Emergency Provider Emergency Medicine
DX: L55.0 Sunburn of first degree (principal)
CPT/HCPCS: 99282 ×2